=== PATIENT | female | born 1990 | race Caucasian/White ===

== ENCOUNTER 2022-03-28 23:04 | Inpatient (IN) | payer OTHER ==
[~2022-03-28] VITALS: Ht 152.4 cm; Wt 58.9 kg
[~2022-03-28 23:04] MED LIST: ALBU8HFA IH; APIX2.5T PO; CINA30TA5 PO; HYDR-4584 PO; MECL-226 PO; METO-408 PO; NUT.237L66 PO; SACU1TAB7 PO; SERT-440 PO; SEVE800T17 PO; SPIR-37 PO
[2022-03-28 23:21] LABS: GLUCOSE,POINT OF CARE 337 MG/DL (70-110)
[2022-03-28 23:32] LABS: BASOPHILS % (AUTO) 0.3 % (0.0-2.0); EOSINOPHILS % (AUTO) 0.5 % (1.0-6.0); HEMOGLOBIN 10.2 g/dL (12.0-16.0); LYMPHOCYTES # (AUTO) 0.4 K/uL (1.0-4.8); LYMPHOCYTES % (AUTO) 2.4 % (22.0-44.0); MEAN CORPUSCULAR HEMOGLOBIN 32.9 pg (26.0-34.0); MEAN CORPUSCULAR VOLUME 97 fL (80-100); MONOCYTES # (AUTO) 0.4 K/uL (0.1-1.0); MONOCYTES % (AUTO) 2.3 % (2.0-9.0); NEUTROPHILS # (AUTO) 14.7 K/uL (1.8-7.7); PLATELET COUNT (AUTO) 131 K/uL (150-450); RED BLOOD CELL COUNT(AUTO) 3.09 MIL/uL (4.00-5.20); RED CELL DISTRIBUTION WIDTH 13.8 % (11.5-14.5)
[2022-03-28 23:41] LABS: NEUTROPHILS % (AUTO) 94.5 % (40.0-70.0)
[2022-03-28 23:49] LABS: ALBUMIN 3.1 g/dL (3.4-5.0); BILIRUBIN,TOTAL 1.1 mg/dL (0.1-1.0); CALCIUM, TOTAL 8.7 mg/dL (8.8-10.5); CREATININE 2.94 mg/dL (0.60-1.30); TOTAL PROTEIN, SERUM 6.6 g/dL (6.4-8.2)
[2022-03-29] VITALS (12 sets, daily range): BP systolic 93–128; BP diastolic 44–66
[2022-03-29] LABS: POTASSIUM 2.8 mmol/L (3.5-5.1)
[2022-03-29 01:09] LABS: COVID AG,FIA SOURCE NASAL SWAB
[2022-03-29 01:32] LABS: LACTIC ACID 1.3 mmol/L (0.4-2.0)
[2022-03-29] MEDS ORDERED: MECLIZINE HCL 12.5 MG TABLET PO PRN (02:30)
[2022-03-29] MEDS ORDERED: HydrOXYzine HCL 50 MG TABLET PO PRN (02:30)
[2022-03-29] MEDS ORDERED: ALBUTEROL SULFATE HFA 90 MCG/PUFF 8 GM INHALER IH PRN (02:30)
[2022-03-29] MEDS ORDERED: *CLINICAL-CEFEPIME DOSING CLINICAL ONE (02:30)
[2022-03-29] MEDS ORDERED: POTASSIUM CHLORIDE 10% 40 MEQ/30 ML LIQUID UDCUP PO ONE (02:30)
[2022-03-29] MEDS ORDERED: VANCOMYCIN HCL 1.5 GM in DEXTROSE 5%-WATER 250 ML IV ONE (03:15)
[2022-03-29] MEDS ORDERED: VANCOMYCIN HCL 1 GM/D5% WATER 200 ML IV PRN ×2 (03:30→15:30)
[2022-03-29] MEDS ORDERED: CEFEPIME HCL 1 GM in DEXTROSE 5%-WATER 50 ML IV ONE (05:00)
[2022-03-29] MEDS ORDERED: DEXTROSE 50%-WATER 25 GM/50 ML SYRINGE IVP PRN (07:45)
[2022-03-29] MEDS ORDERED: METOPROLOL SUCCINATE 25 MG ER TABLET PO SCH (09:00)
[2022-03-29] MEDS ORDERED: SACUBITRIL/VALSARTAN 49-51 MG TABLET PO SCH (09:00)
[2022-03-29] MEDS: SERTRALINE HCL 100 MG TABLET PO SCH (09:40)
[2022-03-29] MEDS: CINACALCET HCL 30 MG TABLET PO SCH (09:40)
[2022-03-29] MEDS: SEVELAMER CARBONATE 800 MG TABLET PO SCH ×4 (09:41→17:31)
[2022-03-29] MEDS: SPIRONOLACTONE 25 MG TABLET PO SCH (09:41)
[2022-03-29] MEDS: APIXABAN 2.5 MG TABLET PO SCH ×2 (09:42→21:04)
[2022-03-29] MEDS: ONDANSETRON HCL 4 MG/2 ML VIAL IVP PRN (09:44)
[2022-03-29] MEDS: VITAMIN B COMP/VIT C/FOLIC ACID CAPSULE PO SCH (10:29)
[2022-03-29] MEDS ORDERED: EPOETIN ALFA 10,000 UNITS/ML 2 ML VIAL SQ SCH (10:30)
[2022-03-29] MEDS ORDERED: METOPROLOL SUCCINATE 25 MG ER TABLET PO STA (11:31)
[2022-03-29] MEDS: ONDANSETRON HCL 4 MG TABLET PO PRN ×2 (11:48→13:58)
[2022-03-29] MEDS: INSULIN LISPRO 100 UNITS/ML SQ PRN ×2 (11:55→21:10)
[2022-03-29] MEDS ORDERED: LIDOCAINE/PF 2% 5 ML VIAL IM ONE (12:00)
[2022-03-29] MEDS ORDERED: ALBUMIN HUMAN 25%-12.5GM/50ML IV BOTTLE IV ONE (12:00)
[2022-03-29] MEDS ORDERED: SODIUM CHLORIDE 0.9% 1,000 ML ONE ×2 (12:26)
[2022-03-29 13:34] LABS: BASOPHILS % (AUTO) 1.2 % (0.0-2.0); EOSINOPHILS % (AUTO) 1.5 % (1.0-6.0); HEMATOCRIT 25.1 % (36-46); HEMOGLOBIN 8.7 g/dL (12.0-16.0); LYMPHOCYTES # (AUTO) 0.3 K/uL (1.0-4.8); LYMPHOCYTES % (AUTO) 2.8 % (22.0-44.0); MEAN CORPUSCULAR HEMOGLOBIN 33.1 pg (26.0-34.0); MEAN CORPUSCULAR HGB CONC 34.6 G/dL (31.0-37.0); MEAN CORPUSCULAR VOLUME 96 fL (80-100); MONOCYTES # (AUTO) 0.4 K/uL (0.1-1.0); MONOCYTES % (AUTO) 3.5 % (2.0-9.0); NEUTROPHILS # (AUTO) 10.5 K/uL (1.8-7.7); PLATELET COUNT (AUTO) 108 K/uL (150-450); RED BLOOD CELL COUNT(AUTO) 2.62 MIL/uL (4.00-5.20); RED CELL DISTRIBUTION WIDTH 14.1 % (11.5-14.5)
[2022-03-29 13:44] LABS: CALCIUM, TOTAL 8.6 mg/dL (8.8-10.5); CREATININE 3.69 mg/dL (0.60-1.30); POTASSIUM 3.1 mmol/L (3.5-5.1)
[2022-03-29 13:51] LABS: ALBUMIN 2.7 g/dL (3.4-5.0); TOTAL PROTEIN, SERUM 6.2 g/dL (6.4-8.2)
[2022-03-29] MEDS ORDERED: SODIUM CHLORIDE 0.9% 250 ML IV ONE (15:10)
[2022-03-29] MEDS ORDERED: VANCOMYCIN HCL 500 MG in DEXTROSE 5%-WATER 100 ML IV ONE (16:00)
[2022-03-29] MEDS ORDERED: ALBUMIN HUMAN 25%-25GM/100ML 100 ML IV ONE (16:15)
[2022-03-29] MEDS: ACETAMINOPHEN 325 MG TABLET PO PRN (17:30)
[2022-03-29 20:11] LABS: GLUCOMETER DEV NAME(LOC) 5S.1B; GLUCOSE,POINT OF CARE 193 MG/DL (70-110)
[2022-03-29 20:11] LABS: GLUCOMETER DEV NAME(LOC) 5S.1B; GLUCOSE,POINT OF CARE 88 MG/DL (70-110)
[2022-03-29] MEDS: INSULIN GLARGINE,HUM.REC.ANLOG 100 UNITS/ML SQ SCH (21:08)
[2022-03-30] VITALS (7 sets, daily range): BP systolic 78–106; BP diastolic 40–68
[2022-03-30 07:15] LABS: BASOPHILS % (AUTO) 0.3 % (0.0-2.0); EOSINOPHILS % (AUTO) 2.3 % (1.0-6.0); HEMATOCRIT 24.4 % (36-46); HEMOGLOBIN 8.2 g/dL (12.0-16.0); LYMPHOCYTES # (AUTO) 0.4 K/uL (1.0-4.8); LYMPHOCYTES % (AUTO) 5.4 % (22.0-44.0); MEAN CORPUSCULAR HEMOGLOBIN 32.7 pg (26.0-34.0); MEAN CORPUSCULAR HGB CONC 33.6 G/dL (31.0-37.0); MEAN CORPUSCULAR VOLUME 97 fL (80-100); MONOCYTES # (AUTO) 0.5 K/uL (0.1-1.0); MONOCYTES % (AUTO) 6.7 % (2.0-9.0); NEUTROPHILS # (AUTO) 6.5 K/uL (1.8-7.7); PLATELET COUNT (AUTO) 101 K/uL (150-450); RED BLOOD CELL COUNT(AUTO) 2.51 MIL/uL (4.00-5.20); RED CELL DISTRIBUTION WIDTH 14.5 % (11.5-14.5)
[2022-03-30 07:17] LABS: NEUTROPHILS % (AUTO) 85.3 % (40.0-70.0)
[2022-03-30 07:37] LABS: ALBUMIN 2.9 g/dL (3.4-5.0); BILIRUBIN,TOTAL 1.2 mg/dL (0.1-1.0); CALCIUM, TOTAL 8.3 mg/dL (8.8-10.5); CREATININE 2.98 mg/dL (0.60-1.30); POTASSIUM 3.7 mmol/L (3.5-5.1); TOTAL PROTEIN, SERUM 6.1 g/dL (6.4-8.2)
[2022-03-30] MEDS: -POST HEMODIALYSIS NOTE- MISC SCH (09:00)
[2022-03-30] MEDS ORDERED: METOPROLOL SUCCINATE 50 MG ER TABLET PO SCH (09:00)
[2022-03-30] MEDS: VITAMIN B COMP/VIT C/FOLIC ACID CAPSULE PO SCH (10:00)
[2022-03-30] MEDS: SEVELAMER CARBONATE 800 MG TABLET PO SCH ×3 (10:00→17:23)
[2022-03-30] MEDS: SERTRALINE HCL 100 MG TABLET PO SCH (10:01)
[2022-03-30] MEDS: METOPROLOL SUCCINATE 25 MG ER TABLET PO SCH (10:01)
[2022-03-30] MEDS: CINACALCET HCL 30 MG TABLET PO SCH (10:01)
[2022-03-30] MEDS: SPIRONOLACTONE 25 MG TABLET PO SCH (11:20)
[2022-03-30] MEDS: APIXABAN 2.5 MG TABLET PO SCH ×2 (11:20→22:10)
[2022-03-30] MEDS: ONDANSETRON HCL 4 MG/2 ML VIAL IVP PRN (13:15)
[2022-03-30] MEDS ORDERED: CEFEPIME HCL 0.5 GM in DEXTROSE 5%-WATER 50 ML IV SCH (18:00)
[2022-03-30] MEDS ORDERED: CEFEPIME HCL 0.5 GM in DEXTROSE 5%-WATER 50 ML IV PRN (18:00)
[2022-03-30 18:36] LABS: GLUCOMETER DEV NAME(LOC) 5N.1C; GLUCOSE,POINT OF CARE 125 MG/DL (70-110)
[2022-03-30] MEDS: INSULIN GLARGINE,HUM.REC.ANLOG 100 UNITS/ML SQ SCH (22:14)
[2022-03-30] MEDS: ALPRAZolam 0.25 MG TABLET PO PRN (23:27)
[2022-03-31] VITALS (7 sets, daily range): BP systolic 90–142; BP diastolic 42–91
[2022-03-31 04:06] LABS: GLUCOMETER DEV NAME(LOC) 5N.3; GLUCOSE,POINT OF CARE 188 MG/DL (70-110)
[2022-03-31 05:31] LABS: BASOPHILS % (AUTO) 0.7 % (0.0-2.0); EOSINOPHILS % (AUTO) 3.2 % (1.0-6.0); HEMATOCRIT 22.9 % (36-46); HEMOGLOBIN 7.6 g/dL (12.0-16.0); LYMPHOCYTES # (AUTO) 0.5 K/uL (1.0-4.8); LYMPHOCYTES % (AUTO) 9.3 % (22.0-44.0); MEAN CORPUSCULAR HEMOGLOBIN 32.7 pg (26.0-34.0); MEAN CORPUSCULAR HGB CONC 33.4 G/dL (31.0-37.0); MEAN CORPUSCULAR VOLUME 98 fL (80-100); MONOCYTES # (AUTO) 0.4 K/uL (0.1-1.0); MONOCYTES % (AUTO) 7.9 % (2.0-9.0); NEUTROPHILS # (AUTO) 4.4 K/uL (1.8-7.7); NEUTROPHILS % (AUTO) 78.9 % (40.0-70.0); PLATELET COUNT (AUTO) 105 K/uL (150-450); RED BLOOD CELL COUNT(AUTO) 2.34 MIL/uL (4.00-5.20); RED CELL DISTRIBUTION WIDTH 14.4 % (11.5-14.5)
[2022-03-31 05:56] LABS: ALBUMIN 2.8 g/dL (3.4-5.0); BILIRUBIN,TOTAL 1.1 mg/dL (0.1-1.0); CREATININE 4.46 mg/dL (0.60-1.30); POTASSIUM 3.9 mmol/L (3.5-5.1); VANCOMYCIN,RANDOM 42.4 mcg/mL (25.0-50.0)
[2022-03-31] MEDS: ALPRAZolam 0.25 MG TABLET PO PRN ×2 (07:20→15:53)
[2022-03-31] MEDS: METOPROLOL SUCCINATE 25 MG ER TABLET PO SCH (08:31)
[2022-03-31] MEDS: SERTRALINE HCL 100 MG TABLET PO SCH (08:51)
[2022-03-31] MEDS: CINACALCET HCL 30 MG TABLET PO SCH (08:51)
[2022-03-31] MEDS: APIXABAN 2.5 MG TABLET PO SCH ×2 (08:51→20:56)
[2022-03-31] MEDS: SEVELAMER CARBONATE 800 MG TABLET PO SCH ×3 (08:51→18:54)
[2022-03-31] MEDS: VITAMIN B COMP/VIT C/FOLIC ACID CAPSULE PO SCH (08:51)
[2022-03-31] MEDS: -POST HEMODIALYSIS NOTE- MISC SCH (08:51)
[2022-03-31] MEDS: MORPHINE SULFATE 2 MG/ML SYRINGE IVP PRN (15:18)
[2022-03-31] MEDS: LACTULOSE 20 GM/30 ML SOLUTION UDCUP PO SCH (15:45)
[2022-03-31] MEDS: CLOTRIMAZOLE 1% 45 GM VAGINAL CREAM VG SCH (16:36)
[2022-03-31] MEDS ORDERED: OxyCODONE HCL/ACETAMINOPHEN 5-325 MG TABLET ONE (17:05)
[2022-03-31] MEDS: OxyCODONE HCL/ACETAMINOPHEN 5-325 MG TABLET PO PRN ×2 (17:23→23:36)
[2022-03-31] MEDS: SENNA/DOCUSATE SODIUM 8.6-50 MG TABLET PO SCH ×2 (20:50→21:00)
[2022-03-31] MEDS: INSULIN GLARGINE,HUM.REC.ANLOG 100 UNITS/ML SQ SCH (21:00)
[2022-03-31] MEDS ORDERED: MORPHINE SULFATE 2 MG/ML SYRINGE IVP ONE (21:30)
[2022-04-01] VITALS (14 sets, daily range): BP systolic 92–131; BP diastolic 44–81
[2022-04-01 00:36] LABS: GLUCOMETER DEV NAME(LOC) 5N.3; GLUCOSE,POINT OF CARE 98 MG/DL (70-110)
[2022-04-01] MEDS: MORPHINE SULFATE 2 MG/ML SYRINGE IVP PRN (03:30)
[2022-04-01] MEDS: APIXABAN 2.5 MG TABLET PO SCH ×2 (08:35→21:09)
[2022-04-01] MEDS: LACTULOSE 20 GM/30 ML SOLUTION UDCUP PO SCH (08:35)
[2022-04-01] MEDS: SEVELAMER CARBONATE 800 MG TABLET PO SCH ×3 (08:35→18:24)
[2022-04-01] MEDS: VITAMIN B COMP/VIT C/FOLIC ACID CAPSULE PO SCH (08:35)
[2022-04-01] MEDS: SENNA/DOCUSATE SODIUM 8.6-50 MG TABLET PO SCH ×2 (08:36→21:00)
[2022-04-01] MEDS: METOPROLOL SUCCINATE 25 MG ER TABLET PO SCH (08:36)
[2022-04-01] MEDS: CLOTRIMAZOLE 1% 45 GM VAGINAL CREAM VG SCH (08:38)
[2022-04-01] MEDS: -POST HEMODIALYSIS NOTE- MISC SCH (09:55)
[2022-04-01] MEDS: SERTRALINE HCL 100 MG TABLET PO SCH (09:56)
[2022-04-01] MEDS ORDERED: CALCIUM CARBONATE 500 MG CHEWABLE TABLET CHEW ONE (11:15)
[2022-04-01] MEDS ORDERED: LIDOCAINE/PF 1% 2 ML VIAL IM ONE (12:00)
[2022-04-01] MEDS: ONDANSETRON HCL 4 MG TABLET PO PRN (13:40)
[2022-04-01] MEDS ORDERED: SODIUM CHLORIDE 0.9% 1,000 ML ONE (14:16)
[2022-04-01] MEDS ORDERED: VANCOMYCIN HCL 1 GM in DEXTROSE 5%-WATER 250 ML IV PRN (17:00)
[2022-04-01] MEDS: OMEPRAZOLE 20 MG CAPSULE PO SCH (17:02)
[2022-04-01] MEDS: EPOETIN ALFA 10,000 UNITS/ML 2 ML VIAL SQ SCH (17:40)
[2022-04-01] MEDS ORDERED: LIDOCAINE/PF 1% 2 ML VIAL ID PRN (17:45)
[2022-04-01] MEDS: ALPRAZolam 0.25 MG TABLET PO PRN (21:09)
[2022-04-01] MEDS: ACETAMINOPHEN 325 MG TABLET PO PRN (21:09)
[2022-04-01] MEDS: INSULIN GLARGINE,HUM.REC.ANLOG 100 UNITS/ML SQ SCH (21:12)
[2022-04-01] MEDS: INSULIN LISPRO 100 UNITS/ML SQ PRN (21:13)
[2022-04-02 00:23] VITALS: BP 109/66
[2022-04-02 04:36] VITALS: BP 100/60
[2022-04-02 07:48] VITALS: BP 91/49
[2022-04-02] MEDS ORDERED: OMEPRAZOLE 20 MG CAPSULE PO ONE (08:00)
[2022-04-02] MEDS: SENNA/DOCUSATE SODIUM 8.6-50 MG TABLET PO SCH ×2 (09:00→20:26)
[2022-04-02] MEDS: METOPROLOL SUCCINATE 25 MG ER TABLET PO SCH (09:00)
[2022-04-02] MEDS: SEVELAMER CARBONATE 800 MG TABLET PO SCH ×3 (09:09→17:47)
[2022-04-02] MEDS: VITAMIN B COMP/VIT C/FOLIC ACID CAPSULE PO SCH (09:09)
[2022-04-02] MEDS: LACTULOSE 20 GM/30 ML SOLUTION UDCUP PO SCH (09:09)
[2022-04-02] MEDS: SERTRALINE HCL 100 MG TABLET PO SCH (09:10)
[2022-04-02] MEDS: APIXABAN 2.5 MG TABLET PO SCH ×2 (09:10→20:25)
[2022-04-02] MEDS: OMEPRAZOLE 20 MG CAPSULE PO SCH (09:10)
[2022-04-02] MEDS: CLOTRIMAZOLE 1% 45 GM VAGINAL CREAM VG SCH (09:11)
[2022-04-02] MEDS: -POST HEMODIALYSIS NOTE- MISC SCH (09:11)
[2022-04-02 11:37] LABS: GLUCOMETER DEV NAME(LOC) 5N.1C; GLUCOSE,POINT OF CARE 154 MG/DL (70-110)
[2022-04-02 12:00] VITALS: BP 102/66
[2022-04-02] MEDS: ALPRAZolam 1 MG TABLET PO PRN ×2 (14:25→22:37)
[2022-04-02 15:49] VITALS: BP 99/65
[2022-04-02 17:11] LABS: GLUCOMETER DEV NAME(LOC) 5S.1B; GLUCOSE,POINT OF CARE 97 MG/DL (70-110)
[2022-04-02] MEDS: ONDANSETRON HCL 4 MG TABLET PO PRN (17:33)
[2022-04-02 19:50] VITALS: BP 98/62
[2022-04-02] MEDS: OxyCODONE HCL/ACETAMINOPHEN 5-325 MG TABLET PO PRN (20:25)
[2022-04-02] MEDS: INSULIN GLARGINE,HUM.REC.ANLOG 100 UNITS/ML SQ SCH (20:26)
[2022-04-03] VITALS (12 sets, daily range): BP systolic 85–111; BP diastolic 48–82
[2022-04-03 04:52] LABS: GLUCOMETER DEV NAME(LOC) 5N.1C; GLUCOSE,POINT OF CARE 66 MG/DL (70-110)
[2022-04-03 04:52] LABS: GLUCOMETER DEV NAME(LOC) 5S.2B; GLUCOSE,POINT OF CARE 91 MG/DL (70-110)
[2022-04-03] MEDS: SERTRALINE HCL 100 MG TABLET PO SCH (08:46)
[2022-04-03] MEDS: APIXABAN 2.5 MG TABLET PO SCH (08:46)
[2022-04-03] MEDS: LACTULOSE 20 GM/30 ML SOLUTION UDCUP PO SCH (08:46)
[2022-04-03] MEDS: VITAMIN B COMP/VIT C/FOLIC ACID CAPSULE PO SCH (08:46)
[2022-04-03] MEDS: EPOETIN ALFA 10,000 UNITS/ML 2 ML VIAL SQ SCH (08:46)
[2022-04-03] MEDS: OMEPRAZOLE 20 MG CAPSULE PO SCH (08:47)
[2022-04-03] MEDS: CLOTRIMAZOLE 1% 45 GM VAGINAL CREAM VG SCH (08:47)
[2022-04-03] MEDS: SEVELAMER CARBONATE 800 MG TABLET PO SCH ×3 (08:47→18:19)
[2022-04-03] MEDS: SENNA/DOCUSATE SODIUM 8.6-50 MG TABLET PO SCH (08:47)
[2022-04-03] MEDS: METOPROLOL SUCCINATE 25 MG ER TABLET PO SCH (08:47)
[2022-04-03] MEDS: -POST HEMODIALYSIS NOTE- MISC SCH (09:20)
[2022-04-03] MEDS ORDERED: LACT10SO10 PO (12:33)
[2022-04-03] MEDS ORDERED: ALPRAZolam 0.25 MG TABLET PO PRN (13:45)
[2022-04-03] MEDS ORDERED: SODIUM CHLORIDE 0.9% 1,000 ML ONE (13:59)
[2022-04-03] MEDS: VANCOMYCIN HCL 500 MG in DEXTROSE 5%-WATER 100 ML IV ONE ×2 (15:32→17:29)
[2022-04-03 18:41] LABS: GLUCOMETER DEV NAME(LOC) 5N.1C; GLUCOSE,POINT OF CARE 83 MG/DL (70-110)
[2022-04-03 18:42] LABS: GLUCOMETER DEV NAME(LOC) 5S.2B; GLUCOSE,POINT OF CARE 71 MG/DL (70-110)
[2022-04-03] MEDS ORDERED: LIDOCAINE/PF 1% 2 ML VIAL IM ONE (19:09)
[2022-04-04 17:36] LABS: GLUCOMETER DEV NAME(LOC) 5N.3; GLUCOSE,POINT OF CARE 100 MG/DL (70-110)
[2022-04-08 11:09] LABS: GLUCOSE,POINT OF CARE 127 MG/DL (70-110)
[2022-04-12 21:27] LABS: GLUCOMETER DEV NAME(LOC) AHU.; GLUCOSE,POINT OF CARE 111 MG/DL (70-110)
[2022-04-12 21:27] LABS: GLUCOMETER DEV NAME(LOC) AHU.; GLUCOSE,POINT OF CARE 122 MG/DL (70-110)
[2022-04-12 21:27] LABS: GLUCOMETER DEV NAME(LOC) AHU.; GLUCOSE,POINT OF CARE 105 MG/DL (70-110)
[2022-04-12 21:27] LABS: GLUCOMETER DEV NAME(LOC) AHU.; GLUCOSE,POINT OF CARE 131 MG/DL (70-110)
== END 2022-04-03 19:10 | disposition home or self-care (01) | DRG 720 ==
LOC: EMS 23:06 → 5S 03-29 06:53 → ICU 03-30 07:54 → 5S 03-31 19:10
PROVIDERS: ADMIT Internal Medicine; ATTEND Internal Medicine
PROC: 5A1D70Z Performance of Urinary Filtration, Intermittent, Less than 6 Hours Per Day (ICD-10-PCS; principal; 2022-03-29)
PROC: 5A1D70Z Performance of Urinary Filtration, Intermittent, Less than 6 Hours Per Day (ICD-10-PCS; 2022-04-01)
PROC: 5A1D70Z Performance of Urinary Filtration, Intermittent, Less than 6 Hours Per Day (ICD-10-PCS; 2022-04-03)
DX: A40.9 Streptococcal sepsis, unspecified (principal); R65.21 Severe sepsis with septic shock; I50.23 Acute on chronic systolic (congestive) heart failure; I42.8 Other cardiomyopathies; D63.1 Anemia in chronic kidney disease; E83.39 Other disorders of phosphorus metabolism; E87.1 Hypo-osmolality and hyponatremia; I95.9 Hypotension, unspecified; J18.9 Pneumonia, unspecified organism; M31.8 Other specified necrotizing vasculopathies; M32.14 Glomerular disease in systemic lupus erythematosus; N18.6 End stage renal disease; E87.6 Hypokalemia; I48.0 Paroxysmal atrial fibrillation; F32.A Depression, unspecified; E11.22 Type 2 diabetes mellitus with diabetic chronic kidney disease; I13.2 Hypertensive heart and chronic kidney disease with heart failure and with stage 5 chronic kidney disease, or end stage renal disease; Z20.822 Contact with and (suspected) exposure to COVID-19; Y83.1 Surgical operation with implant of artificial internal device as the cause of abnormal reaction of the patient, or of later complication, without mention of misadventure at the time of the procedure; I05.0 Rheumatic mitral stenosis; J45.909 Unspecified asthma, uncomplicated; R07.89 Other chest pain; D25.9 Leiomyoma of uterus, unspecified; R09.89 Other specified symptoms and signs involving the circulatory and respiratory systems; Z95.3 Presence of xenogenic heart valve; Z86.718 Personal history of other venous thrombosis and embolism; Z79.01 Long term (current) use of anticoagulants; Z86.74 Personal history of sudden cardiac arrest; Z79.899 Other long term (current) drug therapy; Z95.810 Presence of automatic (implantable) cardiac defibrillator; Z99.2 Dependence on renal dialysis; Z88.5 Allergy status to narcotic agent; Z88.8 Allergy status to other drugs, medicaments and biological substances; Z79.84 Long term (current) use of oral hypoglycemic drugs
CPT/HCPCS: 71045; 80053; 80202; 82962; 83605; 83690; 84145; 84484; 84703; 85025; 87040; 87070; 87081; 87205; 87340; 90935; 93005; 93306; 99291; G0378; J0692; J0885; J1815; J2270; J2405; J3370; J3490; J7030; J7050; J7060; P9046; P9047; Q0162; Q9967; 36415-L1; 36415-TC